=== PATIENT | male | born 2000 | race Caucasian/White ===

== ENCOUNTER 2023-11-08 20:01 | Emergency (ER) | payer OTHER, BC, SELFPAY ==
[2023-11-08 20:02] VITALS: BP 110/75; PULSE 59; RESP 16; TEMP 36.4; O2SAT 100; BMI 22.6
--- NOTE | 2023-11-08 20:07 | RAD_ITS ---
STUDY: X-RAY - RIGHT WRIST REASON FOR EXAM: Male, 23 years old. injury TECHNIQUE: 3 view(s) of the wrist were obtained. COMPARISON: None. FINDINGS: Normal visualized distal radius and ulna. Normal radiocarpal articulation. Normal distal radioulnar articulation. Normal carpal bones. Normal carpal articulations. Normal carpometacarpal articulation of the thumb. Normal second through fifth carpometacarpal articulations. Normal visualized metacarpal bones. The soft tissue structures are unremarkable. RAD/Wrist min 3 Views IMPRESSION: Normal x-ray examination of the wrist. Electronically Signed: Dexter José MD at 20:38 EDT ,
--- NOTE | 2023-11-08 20:08 | ED.RN ---
PER MARQUISE ALEGRE, PATIENT DOES NOT NEED TO BE DRUG SCREENED
--- NOTE | 2023-11-08 20:48 | EX.ED.UPPERE ---
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 He notes continued swelling and pain particularly with AB and adduction of the wrist. No prior injuries. Due to the pain and not improving he came to the emergency room tonight. He is right-handed [facility] Medical History no medical history Home Medications ?Medication ?Instructions ?Recorded ?Last Taken ?Type hydrocodone-acetaminophen 5-325mg 1 tab PO Q6H PRN PRN Pain 3 days 11/08/23 Unknown Rx 5mg-325mg #10 TABLETS naproxen 500 mg tablet 500 mg PO BID #14 tabs 11/08/23 Unknown Rx Allergy/AdvReac Type Severity Reaction Status Date / Time No Known Allergies Allergy Verified 11/08/23 20:02 Social History Smoking Status: Never smoker ROS ROS ED Constitutional Constitutional ED: Denies chills, fever(s) or weight loss Eyes Eyes: Denies change in vision or diplopia ENT ENT ED: Denies ear pain, rhinorrhea or sore throat Cardiovascular Cardiovascular: Denies chest pain, orthopnea, palpitations or racing heartbeat Respiratory/Chest Respiratory/Chest: Denies cough, dyspnea or orthopnea Gastrointestinal Gastrointestinal: Denies abdominal pain, diarrhea, nausea or vomiting Genitourinary Genitourinary ED: Denies dysuria, hematuria or urinary frequency Musculoskeletal Musculoskeletal: Reports other Details: See history of present illness ; Denies arthralgias or myalgias Integumentary Denies abscess or rash Neurologic Neurologic: Denies headache(s), paresthesias or weakness Psychiatric Psychiatric: Denies anxiety, depression, suicidal ideation or suicidal thoughts Endocrine Endocrinology: Denies polydipsia, polyphagia or polyuria Allergic/Immunologic Allergic/Immunologic ED: Denies mouth swelling, tongue swelling or urticaria EXAM Physical Exam Const Vital Signs: 11/08/23 20:02 Temperature 97.6 F L Temperature Source Temporal Pulse Rate 59 L Respiratory Rate 16 Blood Pressure 110/75 Blood Pressure Mean 86 Pulse Ox 100 Oxygen Delivery Method Room Air Positive well nourished and well developed General Appearance ED: well developed HEENT Reports normocephalic, head/scalp atraumatic and moist mucous membranes Eyes PERRL and EOMs intact bilaterally Neck full ROM, no lymphadenopathy, supple and no JVD Resp normal respiratory effort and clear to auscultation bilaterally Cardio regular rate, regular rhythm and no murmurs GI normal to inspection, nondistended, normoactive bowel sounds and non-tender Palpation: soft Back/Spine no CVA tenderness and normal ROM Extremity Extremity Narrative: Patient has swelling over the dorsal lateral aspect just proximal to the right wrist. He has limited range of motion with abduction and adduction. There is no erythema lymphangitic streaking. The fingers appear normal. Neurovascular he is intact. General Extremety ED: Negative for edema General Extremity: Negative for edema Neuro oriented x3 and CN's II-XII intact bilaterally Sensorium / Orientation: alert Motor Exam: strength 5/5 throughout Psych mental status grossly normal Mood & Affect: Negative for depressed or tearful Skin no rashes or lesions noted and no wounds MDM MDM MDM Narrative Medical decision making narrative: Differential diagnosis includes sprain strain fracture neuroma. My independent interpretation plain films of the wrist is no acute fracture. Patient will be treated conservatively initially with anti-inflammatories supportive wrist brace and ice. If no improvement will have him follow-up with orthopedics. History & Record Review Discussion w/independent historian: Patient Radiography Diagnostic Testing: Clinical Impression(s) from Imaging Studies Wrist X-Ray 11/08/23 20:07 IMPRESSION: Normal x-ray examination of the wrist. Electronically Signed: Dexter José MD at 20:38 EDT Reading Location ID and State: [address] [place] [address] Tel , Service support , Discharge Plan Triage Chief Complaint: Upper Extremity Injury ED Provider: Kvng Granados Dx/Rx/DC Orders Clinical Impression: Right wrist tendinitis, Acute pain of right wrist Instructions: ED Tendonitis Prescriptions: New hydrocodone-acetaminophen 5-325 mg tablet 1 tab PO Q6H PRN PRN (Reason: Pain) 3 Days Qty: 10 0RF naproxen 500 mg tablet 500 mg PO BID Qty: 14 0RF Referrals: Adan Kearns DO [Med Staff - Active Staff] - 1 Week if not improving Print Language: Persian Disposition Disposition: Home, Self Care
[2023-11-08 21:27] VITALS: BP 116/90; PULSE 60; RESP 18; TEMP 36.6; O2SAT 98
== END 2023-11-08 21:28 | disposition home or self-care (01) ==
PROVIDERS: Emergency Provider Emergency Medicine; Visit Provider Emergency Medicine
DX: M77.8 Other enthesopathies, not elsewhere classified (principal)
CPT/HCPCS: 73110; 99282